=== PATIENT | female | born 1975 | race Caucasian/White ===

== ENCOUNTER 2018-12-23 07:44 | Day surgery (SDC) | payer MEDICAID ==
[2018-12-20 12:04] LABS: BASOPHILS % (AUTO) 0.7 % (0-1); EOSINOPHILS # (AUTO) 0.1 X10'3 (0-0.9); EOSINOPHILS % (AUTO) 1.8 % (0-6); LYMPHOCYTES # (AUTO) 1.3 X10'3 (1.1-4.8); LYMPHOCYTES % (AUTO) 18.5 % (21-51); MEAN CORPUSCULAR HGB CONC 32.9 g/dL (33.0-36.5); MEAN CORPUSCULAR VOLUME 88.3 FL (78-98); MEAN PLATELET VOLUME 9.5 FL (7.4-10.4); MONOCYTES # (AUTO) 0.8 X10'3 (0-0.9); MONOCYTES % (AUTO) 11.5 % (2-12); NEUTROPHILS # (AUTO) 4.6 X10'3 (1.8-7.7); NEUTROPHILS % (AUTO) 67.5 % (42-75); PRE OP HEMATOCRIT 41.1 % (35.0-45.0); PRE OP HEMOGLOBIN 13.5 g/dL (12.0-16.0); PRE OP PLATELET COUNT 252 X10'3 (140-440); RED BLOOD COUNT 4.65 X10'6 (4.20-5.60); RED CELL DISTRIBUTION WIDTH 13.4 % (11.5-14.5)
[2018-12-20 12:10] LABS: CLARITY,URINE SLIGHTLY CLOUDY (Clear); COLOR,URINE YELLOW (Yellow); GLUCOSE, URINE NEGATIVE (Neg); KETONES,URINE NEGATIVE (Neg); LEUKOCYTE ESTERASE ,URINE NEGATIVE (Neg); NITRITES, URINE NEGATIVE (Neg); OCCULT BLOOD,URINE NEGATIVE (Neg); PROTEIN,URINE NEGATIVE (Neg); UROBILINOGEN,URINE 0.2 E.U/dL (0.2-1.0)
[2018-12-20 12:12] LABS: UA COLLECTION TYPE CLN CATCH MIDSTREAM
[2018-12-20 12:14] LABS: HCG SERUM QL NEGATIVE
[2018-12-20 12:15] LABS: PRE OP PROTIME 10.2 SECONDS (9.0-12.0)
[2018-12-20 12:19] LABS: MUCUS STRANDS MODERATE /LPF (Neg); SQUAMOUS EPITHELIAL CELL,UR MANY /LPF (FEW)
[2018-12-20 12:21] LABS: BACTERIA,URINE FEW /HPF (Neg); RBC,URINE 0-2 /HPF (0-2); WBC,URINE 0-4 /HPF (0-4)
[2018-12-20 12:22] LABS: ALBUMIN 3.6 G/DL (3.4-5.0); ALBUMIN/GLOBULIN RATIO 0.9 (1.1-1.5); ALKALINE PHOSPHATASE 61 IU/L (46-116); BLOOD UREA NITROGEN 14 MG/DL (7-18); BUN/CREATININE RATIO 14.7 (6.6-38.0); CALCIUM 8.7 MG/DL (8.5-10.1); CHLORIDE 105 MMOL/L (99-107); CREATININE 0.95 MG/DL (0.40-0.90); PRE OP ALT 18 U/L (30-65); PRE OP ANION GAP 5 (8-16); PRE OP AST 15 U/L (10-37); PRE OP BILIRUB, TOTAL 0.2 MG/DL (0.0-1.0); PRE OP GLUCOSE 89 MG/DL (70-104); PRE OP POTASSIUM 4.1 MMOL/L (3.4-5.1); PRE OP SODIUM 140 MMOL/L (135-145); TOTAL CARBON DIOXIDE 29.8 MMOL/L (24-32); TOTAL PROTEIN 7.8 G/DL (6.4-8.2); eGFR 65 ML/MIN
[~2018-12-23] VITALS: Ht 157.5 cm; Wt 52.2 kg
[2018-12-23] VITALS (7 sets, daily range): BP systolic 111–150; BP diastolic 56–86
[~2018-12-23 07:44] MED LIST: MUPI22OI30 TP; OXYB5TAB16 PO; ceFOXitin 2 GM ADDvantage bag 100 ML IV ONE; famotidine 20mg tablet PO ONE; ringers solution, lacted 1,000 ML IV SCH
[2018-12-23] MEDS ORDERED: ringers solution, lacted 1,000 ML IV SCH (10:02)
[2018-12-23] MEDS ORDERED: hydrALAZINE 20mg/ml inj. IV PRN (10:05)
[2018-12-23] MEDS ORDERED: morphine 4 MG/ML inj SYRINge IV PRN ×2 (10:05)
[2018-12-23] MEDS ORDERED: ondansetron/PF 4mg/2ml inj IV PRN (10:05)
[2018-12-23] MEDS ORDERED: fentaNYL/PF 50MCG/1 ML 2ML syringe IV PRN ×2 (10:05)
[2018-12-23] MEDS ORDERED: labetalol 20mg/4ml (5mg/ml) syringe IV PRN (10:05)
[2018-12-23] MEDS ORDERED: BUPIVAcaine/PF 2.5mg/ml (0.25%) 10ml vial ONE (10:27)
[2018-12-23] MEDS ORDERED: naloxone 0.4 mg/ml inj ONE (10:38)
[2018-12-23] MEDS ORDERED: sevoflurane 250ml liquid IH ONE (10:38)
[2018-12-23] MEDS ORDERED: fentaNYL/PF 50MCG/1 ML 2ML syringe ONE ×2 (10:38→10:39)
[2018-12-23] MEDS ORDERED: midazolam 2 mg/2 ml injection ONE (10:39)
[2018-12-23] MEDS ORDERED: glycopyrrolate 0.2mg/ml inj ONE (10:40)
[2018-12-23] MEDS ORDERED: rocuronium 10mg/ml inj IV ONE (10:40)
[2018-12-23] MEDS ORDERED: neostigmine methylsulfate 1 MG/ML 10ml vial ONE (10:40)
[2018-12-23] MEDS ORDERED: LIDOcaine 2% (20mg/ml) 5ml vial ONE (10:40)
[2018-12-23] MEDS ORDERED: ondansetron/PF 4mg/2ml inj ONE (10:40)
[2018-12-23] MEDS ORDERED: propofol inj 20 ML IV ONE (10:40)
[2018-12-23] MEDS ORDERED: sugammadex 200mg/2ml injection IV ONE (11:22)
--- NOTE | 2018-12-23 11:35 | NUR ---
ADMITTED TO PACU FROM OR ACCOMPANIED BY ANESTHESIA. INTIAL PHYSICAL ASSESSMENT DONE AND RECORDED. AWAKE AND RESPONSE ON ARRIVE YO PACU, REPORT RECEIVED FROM ANESTHESIA.
--- NOTE | 2018-12-23 12:35 | NUR ---
Discharge criteria met, discharge instructions given, demonstrates verbal understanding. Discharged home in good condition.
--- NOTE | 2018-12-23 12:35 | NUR ---
ADMITTED TO PACU FROM OR ACCOMPANIED BY ANESTHESIA. INTIAL PHYSICAL ASSESSMENT DONE AND RECORDED. AWAKE AND RESPONSE ON ARRIVE YO PACU, REPORT RECEIVED FROM ANESTHESIA. Addendum: 12/23/18 at 1307 by Arti Bender RN DISREGARD NOTE, DUPLICATE
== END 2018-12-23 12:35 | disposition home or self-care (01) ==
LOC: PAS 07:44
PROVIDERS: ATTEND Obstetrics & Gynecology
DX: R10.2 Pelvic and perineal pain (principal); R19.00 Intra-abdominal and pelvic swelling, mass and lump, unspecified site; D25.9 Leiomyoma of uterus, unspecified; Z90.721 Acquired absence of ovaries, unilateral; Z90.79 Acquired absence of other genital organ(s); Z98.890 Other specified postprocedural states; Z79.899 Other long term (current) drug therapy
CPT/HCPCS: 36415; 49320; 80053; 81001; 82948; 84703; 85025; 85610; 85730; 86885; 86900; 86901; C1758; C9399; J0694; J2001; J2250; J2310; J2405; J2704; J2710; J3010; J3490; J7120; A4618; A7000